=== PATIENT | female | born 1995 | race Caucasian/White ===

== ENCOUNTER 2019-08-24 20:28 | Emergency (ER) | payer OTHER, SELFPAY ==
[2019-08-24 20:39] VITALS: BP 129/82; PULSE 97; RESP 18; O2SAT 98
--- NOTE | 2019-08-24 20:42 | DI.RAD.S_ITS ---
PROCEDURE: XR KNEE RT 3V INDICATIONS: injury on wednesday,pain worse TECHNIQUE: 3 views of the knee were acquired. COMPARISON: None. FINDINGS: Bones: No fractures or dislocations. No suspicious bony lesions. Soft tissues: No joint effusion. No suspicious soft tissue calcifications. IMPRESSION: No acute radiographic findings. If pain persists, consider advanced imaging with CT or MRI. Dictated by: Sophie Romeo M.D. on 08/24/2019 at 20:59 Approved by: Sophie Romeo M.D. on 08/24/2019 at 20:59
[2019-08-24 20:58] VITALS: BP 129/82; PULSE 97; RESP 18; O2SAT 98
[2019-08-24 22:38] VITALS: BP 117/79; PULSE 77; RESP 18; TEMP 36.5; O2SAT 100
--- NOTE | 2019-08-24 23:52 | ED_ITS ---
HPI - Extremity Injury (Lower) General Chief Complaint: Extremity Injury, Lower Stated Complaint: RT KNEE PAIN Time Seen by Provider: 08/24/19 23:23 Mode of arrival: Ambulatory Limitations: no limitations History of Present Illness HPI Narrative: Patient is a 23-year-old female who presents with right knee pain ongoing for a week. She says she jumped off a small 4 ft wall about a week ago. She felt something pop. She was seen the next day at a walk-in clinic. She had an x-ray she was given crutches and a knee brace and prescription for hydrocodone. She states that is not getting any better she has not yet seen her PCP. She has no numbness tingling weakness. MD complaint: knee injury Related Data Previous Rx's Medication Instructions Recorded hydrocodone 5 mg-acetaminophen 325 1 tab PO Q4-6H PRN #30 tab 08/19/19 mg tablet Allergies Allergy/AdvReac Type Severity Reaction Status Date / Time Penicillins AdvReac dizzy and Verified 08/19/19 11:49 vomiting Review of Systems Review of Systems Narrative: GENERAL: Denies chills,fever HEENT: Denies throat pain RESPIRATORY: Denies dyspnea, cough, wheezing CARDIOVASCULAR: Denies chest pain, palpitations GASTROINTESTINAL: Denies nausea, vomiting MUSCULOSKELETAL: See HPI SKIN: No rash, no laceration, no pruritus NEUROLOGIC: Denies weakness, dizziness, headache, numbness 8 point review of systems is negative except for those stated above and HPI Patient History Medical History Patient denies medical problems (Acute) Social History Smoking Status: Never smoker alcohol intake frequency: a few times a month Substance Use Type: does not use Exam Initial Vital Signs Initial Vital Signs: Vital Signs Pulse Rate 97 H 08/24/19 20:39 Respiratory Rate 18 08/24/19 20:39 Blood Pressure 129/82 08/24/19 20:39 Pulse Oximetry 98 08/24/19 20:39 GENERAL: Well-appearing, well-nourished and in no acute distress. CARDIOVASCULAR: peripheral pulses in tact, cap refill <2 sec RESPIRATORY: No respiratory distress, speaks in full sentences without difficulty EXTREMITIES: Normal range of motion, no clubbing or edema. Neurovascularly intact Right lower extremity: Knee is stable no significant swelling no erythema distal pedal pulse intact NEUROLOGICAL: Cranial nerves II through XII grossly intact. Normal gait and speech. SKIN: Warm, dry, no petechiae, no rashes or lesions. Course Orders Ordered: ED Orders 08/24/19 20:42 XR knee RT 3V Stat Vital Signs Vital signs: Vital Signs - 8 hr 08/24/19 20:39 08/24/19 20:58 08/24/19 22:38 Temperature 97.7 F Pulse Rate 97 H 97 H 77 Respiratory Rate 18 18 18 Blood Pressure 129/82 129/82 Blood Pressure [Left Arm] 117/79 Pulse Oximetry 98 98 100 MDM - Extremity Injury (Lower) Imaging Data Right knee x-ray: Radiologist's impression: PROCEDURE: XR KNEE RT 3V INDICATIONS: injury on wednesday,pain worse TECHNIQUE: 3 views of the knee were acquired. COMPARISON: None. FINDINGS: Bones: No fractures or dislocations. No suspicious bony lesions. Soft tissues: No joint effusion. No suspicious soft tissue calcifications. IMPRESSION: No acute radiographic findings. If pain persists, consider advanced imaging with CT or MRI. Dictated by: Sophie Romeo M.D. on 08/24/2019 at 20:59 MDM Narrative Medical decision making narrative: At this time patient has knee brace and crutches and pain medication. She needs to follow up with PCP. I discussed with her possible need for physical therapy and MRI however this needs more time to heal. X-ray again today is negative. Discharge Plan Departure Patient Disposition: Home Clinical Impression: Right knee sprain Qualifiers: Encounter type: initial encounter Involved ligament of knee: unspecified ligament Qualified Code(s): S83.91XA - Sprain of unspecified site of right knee, initial encounter Discharge Date/Time: 08/25/19 00:00 Instructions: DI for Knee Sprain Activity Restrictions/Additional Instructions: *You have been diagnosed with right knee sprain *What to do: At this time recommend continued use of crutches and the brace as needed. He may require physical therapy or even an outpatient MRI which needs to be arranged by your PCP. *Continue to take medications as directed Ibuprofen 800 mg every 8 hours if needed for [id number] pain Recommend sparing use of hydrocodone *Follow up with your primary care provider in 2-3 days *Return to ER if you should have swelling inability to move toes, significant swelling redness or fever or any new, worsening or concerning symptoms Prescriptions: No Action hydrocodone-acetaminophen [[place]] 5-325 mg tablet 1 tab PO Q4-6H PRN (Reason: pain) Qty: 30 RF: 0
== END 2019-08-25 | disposition home or self-care (01) ==
PROVIDERS: Emergency Provider Emergency Medicine
DX: S83.91XA Sprain of unspecified site of right knee, initial encounter (principal); Y93.39 Activity, other involving climbing, rappelling and jumping off
CPT/HCPCS: 73562; 99282; 99283

== ENCOUNTER → 2021-06-17 12:19 | Outpatient (CLI) | payer OTHER, SELFPAY ==
[2021-06-17 13:08] LABS: COVID19 -Nasal RAPID Negative (Negative)
== END ==
PROVIDERS: Referring Provider Physician Assistant; Visit Provider Physician Assistant
DX: Z20.822 Contact with and (suspected) exposure to COVID-19 (principal); J02.9 Acute pharyngitis, unspecified; R05 Cough; R51.9 Headache, unspecified
CPT/HCPCS: 87635

== ENCOUNTER → 2021-10-16 08:40 | Outpatient (CLI) | payer OTHER, SELFPAY ==
[2021-10-16 09:16] LABS: COVID19 -Nasal RAPID POSITIVE (Negative)
== END ==
PROVIDERS: Referring Provider Physician Assistant; Visit Provider Physician Assistant
DX: Z20.822 Contact with and (suspected) exposure to COVID-19 (principal)
CPT/HCPCS: 87635

== ENCOUNTER → 2022-01-25 10:24 | Outpatient (CLI) | payer OTHER, SELFPAY | PROVIDERS: Visit Provider Physician Assistant | DX: J02.9 Acute pharyngitis, unspecified (principal) | CPT/HCPCS: 87070 ==

== ENCOUNTER 2023-09-01 09:31 | Emergency (ER) | payer OTHER, SELFPAY ==
[2023-09-01 09:40] VITALS: BP 130/89; PULSE 90; RESP 16; TEMP 36.6; O2SAT 99; BMI 27.9
--- NOTE | 2023-09-01 10:17 | DI.US.S_ITS ---
PROCEDURE: US PELVIC COMPLETE INDICATIONS: VAGINAL BLEEDING AND PAIN - IUD TECHNIQUE: Real-time scanning was performed of the pelvic organs, with image documentation. Additional endovaginal scanning was necessary due to incomplete visualization of the adnexal and endometrial structures by transabdominal scanning. COMPARISON: None. FINDINGS: Uterus: Uterus is anteverted and normal in size at 8 x 4.6 x 3.7 cm. The myometrium is homogeneous. The endometrium measures 9 mm combined thickness. There is an IUD present within the patient's uterus. This appears in good position. However there is a linear structure penetrating into the posterior myometrium. Question prior retained portion of IUD or prior postsurgical change. If further evaluation is clinically indicated a CT of the pelvis may be of further clinical value for further evaluation of this finding. Ovaries: The right ovary measures 3.1 x 5.2 x 3.7 cm, with a calculated ovarian volume of 82.1 cc. The left ovary measures 2.0 x 1.3 x 1.2 cm, with a calculated ovarian volume of 1.6 cc. The ovaries have a normal sonographic appearance. Less than 12 follicles can be seen in each ovary. There are 2 cysts involving the patient's right ovary a 4.2 x 4.5 x 3.4 centimeters cyst and a septated 3.4 x 3.4 x 3.3 centimeters cyst. Other: No pathologic free abdominal or pelvic fluid. IMPRESSION: 1. IUD in place within the uterus which appears in good position. 2. Linear structure penetrating into the posterior myometrium which I do not feel is related to the IUD question portion of a prior IUD or postsurgical change. If further evaluation is clinically indicated a CT of the pelvis may be of further clinical value. 3. Two cysts involving the patient's right ovary. A simple appearing cyst measuring 4.5 centimeters and a septated cyst measuring 3.4 centimeters. Given the imaging findings I would recommend a repeat pelvic ultrasound in approximately 6 weeks to re-evaluate for interval resolution. We strive to produce accurate, complete, and clear reports of imaging services. To assist us in improving patient care, this report was composed using standard report templates and voice recognition software. Therefore, it may contain abnormal punctuation, insertions and/or omissions. Occasional wrong-word or sound-alike substitutions may occur. Though we review the report and make efforts to correct it, we do recommend that the report be read carefully in proper context to recognize any text inaccuracies. Dictated by: Foster Cline M.D. on 09/01/2023 at 11:57 Approved by: Foster Cline M.D. on 09/01/2023 at 12:11
[2023-09-01 12:39] LABS: Bacteria Urine None Seen; Culture Indicated Urine Cult Not Indicated; RBC Urine 10-30/HPF (0-5/HPF); Squamous Epithelial Cell Urine 1-5 /HPF (0-5/HPF); WBC Urine 0-1/HPF (0-5/HPF)
[2023-09-01 12:49] LABS: Urine Chlamydia NOT DETECTED; Urine N gonorrhoeae NOT DETECTED
--- NOTE | 2023-09-01 13:28 | DI.CT.S_ITS ---
PROCEDURE: CT PEL WO CON INDICATIONS: Intrauterine FB separate from IUD TECHNIQUE: After the administration of oral contrast, 5 mm thick sections acquired from the iliac crests to the symphysis. 5 mm coronal and sagittal reformats were then performed. For radiation dose reduction, the following was used: automated exposure control, adjustment of mA and/or kV according to patient size. COMPARISON: [facility], , PELVIC COMPLETE, 09/01/2023, 10:52. FINDINGS: Image quality: Excellent. Peritoneum and bowel: Bowel loops demonstrate normal wall thickness and caliber. No free fluid or air. Genitourinary: Uterus is normal in size. There is an IUD within the central uterus. No penetrating foreign body within the posterior uterine wall. A couple of cysts are seen in the right ovary measuring 4.6 x 3.3 cm and 3.9 x 3.1 cm. Left ovary is normal. No pathological free-fluid in the cul-de-sac or adnexa. Bladder wall thickness is normal. Nodes and vessels: No iliac, pelvic, or inguinal adenopathy by size criteria. Iliac vessels demonstrate normal size. Bones: No suspicious bony lesions. Pelvic ring and hip joints appear intact. Miscellaneous: No inguinal hernias. IMPRESSION: 1. There is an IUD in expected position. No radiopaque foreign body traversing the posterior myometrium. The finding is on MRI is probably caused by an artifact. 2. Two cysts in right ovary. Consider ultrasound follow-up in 6-12 weeks. Dictated by: Roman Rose M.D. on 09/01/2023 at 13:42 Approved by: Roman Rose M.D. on 09/01/2023 at 13:50
--- NOTE | 2023-09-01 13:34 | ED_ITS ---
HPI - General Adult General Chief complaint: Abdominal Pain Stated complaint: abd pain/HX US found cysts Time Seen by Provider: 09/01/23 10:16 Source: patient Mode of arrival: Ambulatory History of Present Illness HPI narrative: Patient has a 27-year-old female. Approximately 5-6 weeks ago she underwent a D and C for an elective . She had a ParaGard IUD placed afterwards. Two weeks ago she started to have vaginal bleeding and pain in the right side of her abdomen. No fevers. No abdominal pain. No nausea or vomiting. No change in bowel habits. Related Data Home Medications Medication Instructions Recorded Confirmed sertraline 25 mg tablet 25 mg PO DAILY 01/25/22 01/25/22 Previous Rx's Medication Instructions Recorded inhalational spacing device #1 ea 06/17/21 ([facility] spacer) prednisone 10 mg tablets in a dose See Rx Instructions PO PER PKG DIR 12/08/21 pack #21 ea Allergies Allergy/AdvReac Type Severity Reaction Status Date / Time Penicillins AdvReac dizzy and Verified 09/01/23 09:47 vomiting Review of Systems Constitutional Constitutional: Reports system reviewed and no additional complaints, except as documented Gastrointestinal Gastrointestinal: Reports system reviewed and no additional complaints, except as documented Genitourinary Genitourinary: Reports system reviewed and no additional complaints, except as documented Integumentary/Breasts Skin/Breast: Reports system reviewed and no additional complaints, except as documented Neurologic Neurologic: Reports system reviewed and no additional complaints, except as documented Hematologic/Lymphatic On Anticoagulants: No Patient History Medical History (Updated 09/01/23 @ 14:06 by Foster Cash DO) Patient denies medical problems Social History Smoking Status: Never smoker Smoking Status: Never smoker alcohol intake frequency: a few times a month Substance Use Type: does not use Exam Initial Vital Signs Initial Vital Signs: Vital Signs Temperature 98 F 09/01/23 09:40 Pulse Rate 90 09/01/23 09:40 Respiratory Rate 16 09/01/23 09:40 Blood Pressure 130/89 09/01/23 09:40 Pulse Oximetry 99 09/01/23 09:40 Oxygen Delivery Method Room Air 09/01/23 09:40 Const General: cooperative, comfortable and No ill appearing HENPR Head: normal to inspection and normocephalic Resp Effort & Inspection: normal respiratory effort Cardio Rate: regular rate GI Inspection: non-distended Skin General: no rashes or lesions noted Extrem General: normal to inspection and capillary refill normal Course Orders Ordered: ED Orders 09/01/23 10:17 US pelvic complete Stat 09/01/23 11:16 Chlamydia Gonorrhea PCR -URINE Stat Urine Microscopic Stat 09/01/23 13:28 CT pelvis wo con Stat Discontinued Medications Ibuprofen (Ibuprofen 400 Mg Tablet) 800 mg PO NOW ONE Stop: 09/01/23 14:06 Last Admin: 09/01/23 14:26 Dose: 800 mg Documented By: EMY Vital Signs Vital signs: Vital Signs - 8 hr 09/01/23 09:40 09/01/23 14:32 Temperature 98 F Pulse Rate 90 91 H Respiratory Rate 16 16 Blood Pressure 130/89 125/82 Pulse Oximetry 99 99 Oxygen Delivery Method Room Air Room Air Medical Decision Making Lab Data Lab results reviewed: Yes I reviewed the patient's lab results. Labs: Lab Results 09/01/23 Range/Units 11:16 Urine RBC 10-30/hpf H (0-5/HPF) Urine WBC 0-1/hpf (0-5/HPF) Ur Squamous Epith Cells 1-5 /hpf (0-5/HPF) Urine Bacteria None seen (None) Ur Culture Indicated? Cult not indicated Ur Chlamydia DNA (PCR) Not detected N gonorrhoeae DNA (PCR) Not detected Point of Care Testing Test Results Negative Urine Dip Bedside Urine Glucose Negative Bedside Urine Bilirubin - Negative Bedside Urine Ketone - Negative Urine Specific Tamms 1.020 Bedside Urine Occult Blood ++ Bedside Urine pH 6.0 Bedside Urine Protein - Negative Bedside Urine Urobilinogen - Negative Bedside Urine Nitrite - Negative Bedside Urine Leukocytes - Negative Esterase Point of care testing: Point of Care Testing Test Results Negative Urine Dip Bedside Urine Glucose Negative Bedside Urine Bilirubin - Negative Bedside Urine Ketone - Negative Urine Specific Tamms 1.020 Bedside Urine Occult Blood ++ Bedside Urine pH 6.0 Bedside Urine Protein - Negative Bedside Urine Urobilinogen - Negative Bedside Urine Nitrite - Negative Bedside Urine Leukocytes - Negative Esterase Imaging Data US - AIRPORT MANAGER: Radiologist's Impression: PROCEDURE: US PELVIC COMPLETE INDICATIONS: VAGINAL BLEEDING AND PAIN - IUD TECHNIQUE: Real-time scanning was performed of the pelvic organs, with image documentation. Additional endovaginal scanning was necessary due to incomplete visualization of the adnexal and endometrial structures by transabdominal scanning. COMPARISON: None. FINDINGS: Uterus: Uterus is anteverted and normal in size at 8 x 4.6 x 3.7 cm. The myometrium is homogeneous. The endometrium measures 9 mm combined thickness. There is an IUD present within the patient's uterus. This appears in good position. However there is a linear structure penetrating into the posterior myometrium. Question prior retained portion of IUD or prior postsurgical change. If further evaluation is clinically indicated a CT of the pelvis may be of further clinical value for further evaluation of this finding. Ovaries: The right ovary measures 3.1 x 5.2 x 3.7 cm, with a calculated ovarian volume of 82.1 cc. The left ovary measures 2.0 x 1.3 x 1.2 cm, with a calculated ovarian volume of 1.6 cc. The ovaries have a normal sonographic appearance. Less than 12 follicles can be seen in each ovary. There are 2 cysts involving the patient's right ovary a 4.2 x 4.5 x 3.4 centimeters cyst and a septated 3.4 x 3.4 x 3.3 centimeters cyst. Other: No pathologic free abdominal or pelvic fluid. IMPRESSION: 1. IUD in place within the uterus which appears in good position. 2. Linear structure penetrating into the posterior myometrium which I do not feel is related to the IUD question portion of a prior IUD or postsurgical change. If further evaluation is clinically indicated a CT of the pelvis may be of further clinical value. 3. Two cysts involving the patient's right ovary. A simple appearing cyst measuring 4.5 centimeters and a septated cyst measuring 3.4 centimeters. Given the imaging findings I would recommend a repeat pelvic ultrasound in approximately 6 weeks to re- evaluate for interval resolution. CT pelvis: Radiologist's Impression: PROCEDURE:? CT PEL WO CON ? INDICATIONS:? Intrauterine FB separate from IUD ? TECHNIQUE:?? After the administration of oral contrast, 5 mm thick sections acquired from the iliac? crests to the symphysis.? 5 mm coronal and sagittal reformats were then performed.? For? radiation dose reduction, the following was used:? automated exposure control, adjustment? of mA and/or kV according to patient size.?? ? COMPARISON:? [facility], , PELVIC COMPLETE, 09/01/2023, 10:52. ? FINDINGS:?? Image quality:? Excellent.?? ? Peritoneum and bowel:? Bowel loops demonstrate normal wall thickness and caliber.? No? free fluid or air.?? ? Genitourinary:? Uterus is normal in size.? There is an IUD within the central uterus.? No? penetrating foreign body within the posterior uterine wall. ? A couple of cysts are seen in the right ovary measuring 4.6 x 3.3 cm and 3.9 x 3.1 cm.?? Left ovary is normal.?? ? No pathological free-fluid in the cul-de-sac or adnexa. ? Bladder wall thickness is normal.?? ? Nodes and vessels:? No iliac, pelvic, or inguinal adenopathy by size criteria.? Iliac? vessels demonstrate normal size.?? ? Bones:? No suspicious bony lesions.? Pelvic ring and hip joints appear intact.?? ? Miscellaneous:? No inguinal hernias.?? ? IMPRESSION:?? ? 1. There is an IUD in expected position.? No radiopaque foreign body traversing the? posterior myometrium.? The finding is on MRI is probably caused by an artifact. ? 2. Two cysts in right ovary.? Consider ultrasound follow-up in 6-12 weeks. MDM Narrative Medical decision making narrative: No signs of infection. Ultrasound showed IUD in place but potentially other intrauterine foreign body. She also has 2 right-sided ovarian cyst which is most likely causing her right pelvic pain. Afebrile. Results CT scan does not show any foreign body other than the IUD. Discuss this with the patient. No indication for antibiotics. No indication for further radiologic studies. Abnormal bleeding most likely because of her recent procedure and the new form of control. Will discharge patient home with follow-up instructions. She was given return precautions. She expressed understanding and agreement. Discharge Plan Departure Patient Disposition: Home Clinical Impression: Cyst of right ovary, Vaginal bleeding Instructions: DI for Ovarian Cyst Activity Restrictions/Additional Instructions: Recommend that you follow all of the postprocedure instructions given to you by the provider who performed your procedure. Recommend that you contact your primary doctor for a follow-up. Return to the emergency department for new or worsening symptoms. Prescriptions: No Action (DME) Taryn Gomez [facility] Spacer See Rx Instructions .[facility] Qty: 1 0RF Rx Instructions: Please use with albuterol inhaler. prednisone 10 mg tablets,dose pack See Rx Instructions PO PER PKG DIR Qty: 21 0RF Rx Instructions: PO PER PKG DIR sertraline 25 mg tablet 25 mg PO DAILY Referrals: Stuart Che DO [Primary Care Provider] - Stand Alone Forms: Patient Portal/API
[2023-09-01] MEDS: IBUPROFEN 400 MG TABLET 800 MG PO (14:26)
[2023-09-01 14:32] VITALS: BP 125/82; PULSE 91; RESP 16; O2SAT 99
== END 2023-09-01 14:31 | disposition home or self-care (01) ==
PROVIDERS: Emergency Provider Emergency Medicine; PCP Family Medicine
DX: N83.201 Unspecified ovarian cyst, right side (principal); N93.9 Abnormal uterine and vaginal bleeding, unspecified; Z97.5 Presence of (intrauterine) contraceptive device
CPT/HCPCS: 72192; 76830; 76856; 81003; 81015; 81025; 87491; 87591; 93976; 99283; 99284

== ENCOUNTER → 2023-10-14 14:35 | Outpatient (CLI) | payer OTHER, MEDICAID, SELFPAY ==
--- NOTE | 2023-10-14 | DI.US.S_ITS ---
PROCEDURE: US PELVIC COMPLETE INDICATIONS: Other ovarian cyst, right side TECHNIQUE: Real-time scanning was performed of the pelvic organs, with image documentation. Additional endovaginal scanning was necessary due to incomplete visualization of the adnexal and endometrial structures by transabdominal scanning. COMPARISON: [facility], , US PELVIC COMPLETE, 09/01/2023, 10:52. FINDINGS: Uterus: Uterus is anteverted and normal in size at a 8.4 x 3.6 x 4.7 cm. The myometrium is homogeneous. The endometrium measures 9 mm combined thickness. Intrauterine device in place. Ovaries: The right ovary measures 3.6 x 1.9 x 1.7 cm, with a calculated ovarian volume of 5.9 cc. Right ovarian cysts have resolved. The left ovary measures 4.8 x 4.0 x 2.8 cm, with a calculated ovarian volume of 21.4 cc. Left ovarian simple cyst measuring 2.7 x 2.4 x 2.2 centimeters . The ovaries otherwise have a normal sonographic appearance. Less than 12 follicles can be seen in each ovary. No adnexal masses are seen. Other: No pathologic free abdominal or pelvic fluid. IMPRESSION: 1. Resolution of prior right ovarian cysts. 2. New left ovarian simple cyst measuring 2.7 centimeters. Given size less than 3 centimeters in a premenopausal female, this is statistically favored to be benign and no follow-up is necessary. 3. Intrauterine device in place. We strive to produce accurate, complete, and clear reports of imaging services. To assist us in improving patient care, this report was composed using standard report templates and voice recognition software. Therefore, it may contain abnormal punctuation, insertions and/or omissions. Occasional wrong-word or sound-alike substitutions may occur. Though we review the report and make efforts to correct it, we do recommend that the report be read carefully in proper context to recognize any text inaccuracies. Dictated by: Hardik Palomino M.D. on 10/14/2023 at 15:44 Approved by: Hardik Palomino M.D. on 10/14/2023 at 15:47
== END ==
PROVIDERS: PCP Family Medicine; Referring Provider Advanced Practice Midwife; Visit Provider Advanced Practice Midwife
DX: N83.291 Other ovarian cyst, right side (principal); N83.292 Other ovarian cyst, left side; Z97.5 Presence of (intrauterine) contraceptive device
CPT/HCPCS: 76830; 76856